=== PATIENT | male | born 1935 | race Caucasian/White ===

== ENCOUNTER → 2018-08-02 | Outpatient (CLI) | payer OTHER ==
[~2018-08-02] VITALS: Ht 180.3 cm; Wt 83.9 kg
[~2018-08-02] MED LIST: ASPIRIN EC81 M1 PO; AVODART0.5 MG PO; DEMEROL50 MG PO; DHA100 MG PO; FLEXERIL PO; HYDRALAZINE 2525 MG PO; LIPITOR 20 MG T20 M1 PO; LOSARTAN-HCTZ1 EAC2 PO; MAGNESIUM-VIT1 EACH PO; METOPROLOL SUCC25 M1 PO; MULTIVITAMINS1 EAC7 PO; SIMVASTATIN40 MG PO; VITAMIN D5000 UNIT PO; VITAMINC500 PO; VOLTAREN50 MG PO; VYTORIN 10-401 EACH PO; ZANTAC 150MG T150 M1 PO
--- NOTE | ~2018-08-02 | HPC ---
[facility] [place] [address] PAIN MANAGEMENT CONSULTATION Name: MARIN FRANKS Room #: REG COREY Rebel#: [id number] Admission: 08/02/18 ������������������ Attend Phys: Zandra Cevallos MD Discharge: ������������������ Date of : 35 Report #: [id number] THIS REPORT FOR: //name// CC: Hakan PEARCE PCP DATE OF SERVICE: 08/02/2018 CHIEF COMPLAINT: Pain down into my legs. HISTORY OF PRESENT ILLNESS: The patient is an 82-year-old gentleman who has been referred to the pain clinic for evaluation. The patient states that he has had back surgery. He has had back surgery on 2 occasions. In the past, he has had pain, which was radiating down into the back portion of his leg. He described it as a pain in the sciatic nerve area. States that he is again experiencing pain, which is radiating down into both the left and the right sciatic nerves. Notes that his pain worsens as time progresses. Notes that when he gets up in the morning, he has some pain and discomfort. Notes problem with walking. Notes that his pain improves when he sits down. He is not sure of anything that makes the pain better. He has tried Tylenol. Notes that his pain is a 9/10 at its worst. States that right leg, most of the time is more problematic. ALLERGIES: HYDROCODONE FROM VICODIN, ACETAMINOPHEN FROM VICODIN. CURRENT MEDICATIONS: Vitamin D 5000 units, Lipitor 20 mg, hydralazine 25 mg, multivitamin 1 capsule daily, Zantac 150 mg, aspirin 81 mg, Vytorin 10/40, Avodart 0.5 mg. PAST MEDICAL HISTORY: 1. Hyperlipidemia. 2. Essential hypertension. 3. Coronary arterial sclerosis. 4. Gastroesophageal reflux. 5. Benign prostatic hypertrophy. 6. Degenerative lumbar intervertebral disk. 7. Sleep apnea. PAST SURGICAL HISTORY: 1. Orthopedic surgery back x 2. 2. Placement of stent and cardiac. 3. Coronary artery bypass graft x 3. 4. Tonsillectomy/adenoids. 5. Appendectomy. 6. Aortic aneurysm stent graft. [facility] [address] [place] [address] PAIN MANAGEMENT CONSULTATION Name: MARIN FRANKS Room #: REG [facility]#: [id number] Admission: 08/02/18 ������������������ Attend Phys: Zandra Cevallos MD Discharge: ������������������ Date of : 35 Report #: [id number] 7. Allergic rhinitis. 8. Both shoulders had surgery. 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 REVIEW OF SYSTEMS: Generally good health, fatigue, weakness, eye disease, wears glasses, glaucoma/cataracts, hearing loss, chronic sinus problems, heart trouble, sexual difficulty, awakens to urinate, rash, itching, skin color changes, convulsion/seizures, bleeding/bruising tendency. LABORATORY DATA: MRI of the lumbar spine dated 07/28/2018. 1. L1-L2 disk space. There is ctki-fr-[id number] generalized disk bulge. Degenerative changes are seen involving the facet joints bilaterally. There is a mild ligamentum flavum hypertrophy bilaterally. Small facet joint effusions are seen. 2. L2-L3 disk space. There is moderate degenerative disk bulge. The patient appears to be post left hemilaminectomy, moderate right-sided ligamentum flavum hypertrophy is seen. Degenerative changes are seen involving the facet joints bilaterally. There is a small right facet joint effusion. These findings when combined do not result in significant spinal or neural foraminal stenosis. 3. L3-L4, the disk space. There is a mild generalized disk bulge. Diagnostic changes are seen. These involve the facet joint bilaterally. There is moderate ligamentum flavum hypertrophy bilaterally. These findings result in mild central spinal canal stenosis. There are no neural foraminal stenosis is seen. 4. At L4-L5, the disk space. There is a moderate generalized disk bulge. Degenerative changes are seen involving of the facet joints bilaterally. There is moderate ligamentum flavum hypertrophy bilaterally. These findings when combined to results in a moderate central spinal canal stenosis. Mild right greater than the left lateral foraminal stenosis is seen. 5. L5-S1, disk space. There is a moderate generalized disk bulge. Degenerative changes are seen involving the facet joints bilaterally. These findings when combined resolved and mild central spinal canal stenosis. No neural foraminal stenosis is seen. PAIN CLINIC ASSESSMENT/PQRS: 1. Back and shoulder osteoarthritic changes. 2. The patient is not being treated for rheumatoid arthritis. 3. Height 5 feet 11 inches, weight 185 pounds, BMI is 25.8. 4. VITAL SIGNS: Blood pressure 161/72, pulse 50, respiratory rate 16, room air saturation 100%. 5. Pain intensity 9/10. 6. Fall risk. The patient has not fallen in the last 3 months. 7. Blood thinner. The patient is not on a blood thinning medication. 8. Hypertension. The patient is being treated for hypertension. 9. Opioids greater than 6 weeks. The patient is not our opioid regimen. 10. Risk assessment tool, low for opioid use. [facility] [address] [place] [address] PAIN MANAGEMENT CONSULTATION Name: MARIN FRANKS Room #: REG WILTON Luque#: [id number] Admission: 08/02/18 ������������������ Attend Phys: Zandra Cevallos MD Discharge: ������������������ Date of : 35 Report #: [id number] 11. Functional assessment tool 58/70. 12. Recreational drug use. The patient denies use of recreational drugs. 13. Tobacco: The patient has never smoked. 14. Alcohol. The patient drinks about 1 pint weekly. PHYSICAL EXAMINATION: GENERAL: The patient is a well-developed, well-nourished white male. Appears his stated age. He is alert and oriented x 3. His affect is appropriate. Speech is fluent. HEAD, EYES, EARS, NOSE, AND THROAT: Normocephalic, atraumatic. Extraocular eye muscles intact. Sclerae nonicteric. Mucous membranes are moist. NECK: Without adenopathy or JVD. HEART: Regular rate. ABDOMEN: Nontender. Bowel sounds present. EXTREMITIES: Upper extremity muscle strength is judged to be 5-/5 for the major muscle groups in the upper extremity. Lower extremity muscle strength 5-/5 for the major muscle groups in the lower extremity. The patient does complain of some pain and discomfort with pain that is radiating down into the right leg. He describes the pain in the L5-S1 dermatomal distribution. IMPRESSION: 1. Lumbar radiculopathy with L5-S1 dermatomal distribution on the right. 2. Hyperlipidemia. 3. Essential hypertension. 4. Coronary arterial sclerosis. 5. Gastroesophageal reflux. 6. Benign prostatic hypertrophy. 7. Degenerative lumbar intervertebral disk. 8. Sleep apnea. RECOMMENDATIONS: We discussed treatment options with the patient. Risks and benefits of an epidural steroid injection were discussed. They include but are not limited to worsening pain, no improvement in pain, nerve trauma and spinal headache. The patient has had surgery in the back area. He has a well-healed scar in the midline area. We explained the greater risks of a spinal headache, given that the patient has had surgery and scar tissue in this area. He agrees to proceed. PROCEDURE NOTE: The patient was taken to the procedure area. He was assisted in getting on the examination table. His back was sterilely prepped with a Betadine solution. A pillow had been placed under his abdomen to bolster and improve positioning. His back was visualized using fluoroscopy, using anterior and posterior viewing. A 25-gauge needle was then injected at the L5-S1 area on the right. A 0.25% bupivacaine was infiltrated. Aspiration was negative. A 17-gauge Tuohy with loss of resistance technique was used to gain access to the epidural space. There was no CSF, heme or paresthesia. Total 80 mg of [address] [address] PAIN MANAGEMENT CONSULTATION Name: MARIN FRANKS Donna Room #: REG [facility]#: [id number] Admission: 08/02/18 ������������������ Attend Phys: Zandra Cevallos MD Discharge: ������������������ Date of : 35 Report #: [id number] Depo-Medrol, 40 mg of triamcinolone and 2 mL of 0.25% bupivacaine was injected. The patient tolerated the procedure well. There were no complications. A total of 10 seconds fluoroscopy time was used. The patient remained in the pain clinic for an appropriate amount of time. He will follow up in the future as needed. We would like to thank you for letting us to participate in his care. We hope he continues to improve. The patient's pain at the time of discharge was zero. ��������������������������������������������� ���������������������������������������� By: ��������������������������������������������� 1918 36 Zandra Cevallos MD /PMT
[2018-08-02 14:04] VITALS: BP 161/72
--- NOTE | 2018-08-02 14:25 | NUR ---
Pain Clinic Assessment: 1. History of Osteoarthritis: BACK SHOULDER History of Rheumatoid Arthritis: Not Applicable 2. Height: 5 ft. 11 in. 180.3 cm. Weight: 185.0 lb. oz. 83.916 kg. Patient's BMI: 25.8 3. Vital Signs: BP: 161/72 Pulse: 50 Resp: 16 Temp: 02 Sat: 100 ECG Mon: 4. Pain Intensity: 9 5. Fall Risk: Dizziness: N Needs help standing or walking: N Fallen in the last 3 months: N Fall risk comments: 6. Patient on Blood Thinner: None 7. History of Hypertension: Y 8. Opioid Therapy greater than 6 weeks: N Opiate Contract Signed: 9. Risk Assessment Tool Provided: LOW RISK 0/3 10. Functional Assessment Tool: 58/70 11. Recreational Drug Use: Never Drug Type: Tobacco Use: Never Smoker Tobacco Type: Amount or Packs/day: How Many Years: Alcohol Use: Yes Frequency: Weekly Quant: 1 PINT
== END | disposition home or self-care (01) ==
LOC: PAIN 11:02
DX: M51.16 Intervertebral disc disorders with radiculopathy, lumbar region (principal); G89.29 Other chronic pain; E78.5 Hyperlipidemia, unspecified; I10 Essential (primary) hypertension; I25.10 Atherosclerotic heart disease of native coronary artery without angina pectoris; K21.9 Gastro-esophageal reflux disease without esophagitis; N40.0 Benign prostatic hyperplasia without lower urinary tract symptoms; G47.33 Obstructive sleep apnea (adult) (pediatric); Z90.49 Acquired absence of other specified parts of digestive tract; Z95.1 Presence of aortocoronary bypass graft; Z98.890 Other specified postprocedural states; Z95.5 Presence of coronary angioplasty implant and graft; Z88.8 Allergy status to other drugs, medicaments and biological substances; Z79.82 Long term (current) use of aspirin; Z79.899 Other long term (current) drug therapy

== ENCOUNTER → 2018-08-23 | Outpatient (CLI) | payer OTHER ==
[~2018-08-23] VITALS: Ht 170.2 cm; Wt 84.7 kg
--- NOTE | ~2018-08-23 | HPC ---
[facility] [place] [address] PAIN MANAGEMENT CONSULTATION Name: MARIN FRANKS [facility] [id number] Admission: 08/23/18 ������������������ Attend Phys: Zandra Cevallos MD Discharge: ������������������ Date of : 35 Report #: [id number] THIS REPORT FOR: //name// CC: Hakan Cevallos NO PCP DATE OF SERVICE: 08/23/2018 PRIMARY CARE PHYSICIAN: Hakan Lyon MD CHIEF COMPLAINT: Pain continues to go down into the back, leg. It is worse on the right side. I did receive some benefit from that injection, but is still really painful. HISTORY: The patient is an 82-year-old gentleman who has been followed in the pain clinic. He underwent an epidural steroid injection. He noticed some benefit for a short period of time in his right leg. Pain is still quite problematic. Radiates down the posterior portion of his thigh and down into the lateral portion of his calf. It is still quite problematic. Rates it as a 7-8 today. He has returned today with the hope that another epidural steroid injection would be beneficial. He has not had any problems. No complications. No change in bowel or bladder function. ALLERGIES: HYDROCODONE FROM VICODIN, ACETAMINOPHEN FROM VICODIN. CURRENT MEDICATIONS: Vitamin D 5000 units, Lipitor 20 mg, hydralazine 25 mg, multivitamin 1 tablet daily, Zanaflex 150 mg, aspirin 81 mg, Vytorin 10/40, Avodart 0.5 mg. PAIN CLINIC ASSESSMENT/PQRS: 1. Back and shoulder pain with arthritic changes. The patient has not been treated for rheumatoid arthritis. 2. Height 5 feet 11 inches, weight 186 pounds, BMI is 29.3. 3. Vital Signs: Blood pressure 154/74, heart rate is 53, respiratory rate 16, room air saturation 98%. 4. Pain intensity 7-8/10. 5. Fall risk. The patient has not fallen in the last 3 months. 6. Blood thinner. The patient is not on a blood thinning medication. 7. Hypertension. He has been treated for hypertension. 8. Opioids greater than 6 weeks. 9. Risk assessment tool, low for opioid use. 10. Functional assessment tool 58/70. 11. Recreational drug use. The patient denies. 12. Tobacco: The patient has never smoked. 13. Alcohol. The patient drinks 3-[address] [address] PAIN MANAGEMENT CONSULTATION Name: MARISOLSaurabhMARIN Room #: REG CLI [facility]#: [id number] Admission: 08/23/18 ������������������ Attend Phys: Zandra Cevallos MD Discharge: ������������������ Date of : 35 Report #: [id number] PHYSICAL EXAMINATION: GENERAL: The patient is a well-developed, well-nourished white male. Appears his stated age. He is alert and oriented x 3. His affect is appropriate. Speech is fluent. HEENT: Normocephalic, atraumatic. Extraocular eye muscles intact. Sclerae nonicteric. Mucous membranes are moist. NECK: Without adenopathy or JVD. HEART: Regular rate. ABDOMEN: Nontender. Bowel sounds present. EXTREMITIES: Upper extremity muscle strength is judged to be 5-/5 for the major muscle groups in the upper extremity. The patient has pain and discomfort, which is radiating down the L5-S1 dermatomal distribution on the right side. Notes some weakness in this leg, note some sensory changes. IMPRESSION: 1. Lumbar radiculopathy with L5-S1 dermatomal distribution on the right. 2. Hyperlipidemia. 3. Essential hypertension. 4. Coronary artery sclerosis. 5. Gastroesophageal reflux. 6. Benign prostatic hypertrophy. 7. Degenerative lumbar intervertebral disk. 8. Sleep apnea. RECOMMENDATIONS: We discussed treatment options with the patient. The patient underwent an epidural injection at the last visit. Still notes his pain is still quite problematic. Rates it as 70 at this juncture. He feels that the pain is still problematic in the posterior portion of his leg and down into the calf. He would like to proceed with another injection. Risks and benefits of the procedure were then again reviewed. They include but are not limited to infection, worsening pain, no improvement in pain, nerve damage, spinal headache and the patient elects to proceed. PROCEDURE NOTE: The patient was taken to the procedure area. He was then assisted in getting on examination table. His back was sterilely prepped with a Betadine solution. Fluoroscopy using anterior, posterior as well as lateral viewing were implemented. The patient's back was infiltrated in the L5-S1 area with a right paramedian approach. Aspiration was negative. A total of 80 mg Depo-Medrol, 40 mg triamcinolone and 2 mL of 0.25% bupivacaine was injected. The patient remained in the pain clinic for an appropriate amount of time. He will follow up in the future as needed. [facility] [address] [place] [address] PAIN MANAGEMENT CONSULTATION Name: MARIN FRANKS Room #: REG CLI Rebel#: [id number] Admission: 08/23/18 ������������������ Attend Phys: Zandra Cevallos MD Discharge: ������������������ Date of : 35 Report #: [id number] We would like to thank you for letting us participate in his care. We hope he continues to improve. ��������������������������������������������� ���������������������������������������� By: ��������������������������������������������� 1305 [id number] Zandra Cevallos MD /PMT
[2018-08-23 10:53] VITALS: BP 154/74
--- NOTE | 2018-08-23 10:54 | NUR ---
Pain Clinic Assessment: 1. History of Osteoarthritis: BACK SHOULDER History of Rheumatoid Arthritis: Not Applicable 2. Height: 5 ft. 7 in. 170.2 cm. Weight: 186.8 lb. oz. 84.732 kg. Patient's BMI: 29.3 3. Vital Signs: BP: 154/74 Pulse: 53 Resp: 16 Temp: 02 Sat: 98 ECG Mon: 4. Pain Intensity: 7-8 5. Fall Risk: Dizziness: N Needs help standing or walking: N Fallen in the last 3 months: N Fall risk comments: 6. Patient on Blood Thinner: None 7. History of Hypertension: Y 8. Opioid Therapy greater than 6 weeks: N Opiate Contract Signed: 9. Risk Assessment Tool Provided: LOW RISK 0/3 10. Functional Assessment Tool: 58/70 11. Recreational Drug Use: Never Drug Type: Tobacco Use: Never Smoker Tobacco Type: Amount or Packs/day: How Many Years: Alcohol Use: Yes Frequency: Weekly Quant: 3-4
== END | disposition home or self-care (01) ==
LOC: PAIN 06:51
DX: M54.16 Radiculopathy, lumbar region (principal); G89.29 Other chronic pain; I10 Essential (primary) hypertension; E78.5 Hyperlipidemia, unspecified; I25.10 Atherosclerotic heart disease of native coronary artery without angina pectoris; K21.9 Gastro-esophageal reflux disease without esophagitis; N40.0 Benign prostatic hyperplasia without lower urinary tract symptoms; G47.33 Obstructive sleep apnea (adult) (pediatric); Z79.899 Other long term (current) drug therapy; Z98.890 Other specified postprocedural states; Z88.8 Allergy status to other drugs, medicaments and biological substances; Z79.82 Long term (current) use of aspirin

== ENCOUNTER → 2018-10-12 | Outpatient (CLI) | payer OTHER ==
[~2018-10-12] VITALS: Ht 180.3 cm; Wt 83.9 kg
[~2018-10-12] MED LIST changes: +TYLENOL EXTRA500 MG PO
--- NOTE | ~2018-10-12 | HPC ---
[facility] [place] [address] PAIN MANAGEMENT CONSULTATION Name: MARIN FRANSK Room #: REG COREYMamadou Luque#: [id number] Admission: 10/12/18 ������������������ Attend Phys: Luke Ching MD Discharge: ������������������ Date of : 35 Report #: [id number] THIS REPORT FOR: //name// CC: Hakan Ching DATE OF SERVICE: 10/12/2018 CHIEF COMPLAINT: Arm pain radiating into the left shoulder and upper arm. The patient is a pleasant 83-year-old gentleman who has been followed in our pain clinic for the last few months by Dr. Dewey Cevallos for lumbar radiculopathy. He presents today with new symptoms. He has neck pain radiating into his left arm consistent with radiculopathy. He has an MRI, which I have reviewed. It shows stenosis at C5-C6 with severe bilateral neural foraminal stenosis. There is also severe left neural foraminal narrowing at C6-C7 more consistent with his symptoms. PQRS REVIEW: 1. Positive for arthritic changes in his lumbar spine with spondylitic changes. He also has pain in his shoulder, which may be arthritic. Some of this may be radiculopathy. 2. BMI is 25.8. 3. Blood pressure is 131/65, heart rate 64, respirations 16 and O2 sat 99. 4. Pain intensity is 7 in his back and 7 in his neck and arm. 5. He has some dizziness, but has not fallen and would not be considered a fall risk. 6. No blood thinning medication. 7. History of hypertension, under treatment. All medications were reviewed and reconciled prescribed by his primary physician. They include Tylenol, vitamin D3, atorvastatin, hydralazine, multivitamins, ranitidine, aspirin, vitamin and Avodart. 8. He takes no opioid medications and has not completed an opioid risk tool. 9. He denies use of tobacco, drinks alcohol in social setting. PHYSICAL EXAMINATION: VITAL SIGNS: As noted before. HEENT: Normal. MUSCULOSKELETAL: Neck range of motion is limited in extension, lateral tilt to the left and rotation to the left. This reproduces symptoms radiating down into his left arm. He has good strength in biceps, triceps and obstetrics scrub nurse. There is no asymmetry. Deep tendon reflexes are diminished at the triceps. This is asymmetrical on to the left. Brine Purifier strength is adequate. Deep tendon reflexes in the lower extremity are 2+ with no signs of hyperreflexia. [facility] [address] [place] [address] PAIN MANAGEMENT CONSULTATION Name: MARIN FRANKS Room #: REG [facility]#: [id number] Admission: 10/12/18 ������������������ Attend Phys: Luke Ching MD Discharge: ������������������ Date of : 35 Report #: [id number] IMPRESSION: 1. Cervical radiculopathy related to a left lateral recess stenosis, C5-C6 and C6-C7. 2. Lumbar radiculopathy, which has been under treatment with some modest success. 3. History of coronary artery disease, status post coronary artery bypass. 4. Hypertension. 5. Hyperlipidemia. RECOMMENDATIONS: Cervical epidural injection under fluoroscopic guidance. Potential benefits and risks of the injection were reviewed and discussed. He would like to proceed. PROCEDURE: He was taken to fluoroscopic suite for treatment where he was placed in the prone position. Skin was prepped with ChloraPrep and the skin anesthetized over the C6-C7 interspace. A 20-gauge Tuohy epidural needle was advanced in the epidural space with loss of resistance technique. There was no blood nor CSF aspirated. A 1 mL of Omnipaque was injected. Good spread of dye observed into the epidural space. It was then followed by 3 mL of 0.5% lidocaine mixed with 80 mg of triamcinolone. He tolerated the procedure well and was observed for 45 minutes and discharged. Followup visit planned in the pain clinic on an as needed basis in the future. I would like to avoid further injections, he has had three injections, two in the lumbar and one in the cervical region in the last 3 months. ��������������������������������������������� ���������������������������������������� By: ��������������������������������������������� [id number] Luke Ching MD /nt
[2018-10-12 13:29] VITALS: BP 131/65
--- NOTE | 2018-10-12 13:44 | NUR ---
Pain Clinic Assessment: 1. History of Osteoarthritis: BACK SHOULDER History of Rheumatoid Arthritis: Not Applicable 2. Height: 5 ft. 11 in. 180.3 cm. Weight: 185.0 lb. oz. 83.916 kg. Patient's BMI: 25.8 3. Vital Signs: BP: 131/65 Pulse: 64 Resp: 16 Temp: 02 Sat: 99 ECG Mon: 4. Pain Intensity: 7 NECK 7 BACK 5. Fall Risk: Dizziness: Y Needs help standing or walking: N Fallen in the last 3 months: N Fall risk comments: 6. Patient on Blood Thinner: None 7. History of Hypertension: Y 8. Opioid Therapy greater than 6 weeks: N Opiate Contract Signed: 9. Risk Assessment Tool Provided: LOW RISK 0/3 10. Functional Assessment Tool: 58/70 11. Recreational Drug Use: Never Drug Type: Tobacco Use: Never Smoker Tobacco Type: Amount or Packs/day: How Many Years: Alcohol Use: Yes Frequency: Weekly Quant:
== END | disposition home or self-care (01) ==
LOC: PAIN 06:58
DX: M48.02 Spinal stenosis, cervical region (principal); M54.12 Radiculopathy, cervical region; M54.16 Radiculopathy, lumbar region; I10 Essential (primary) hypertension; E78.5 Hyperlipidemia, unspecified; I25.10 Atherosclerotic heart disease of native coronary artery without angina pectoris; Z95.1 Presence of aortocoronary bypass graft; Z79.899 Other long term (current) drug therapy; Z98.890 Other specified postprocedural states